=== PATIENT | female | born 1930 | race Caucasian/White ===

== ENCOUNTER 2018-03-04 15:32 | Emergency (ER) | payer OTHER ==
[~2018-03-04] VITALS: Ht 142.2 cm; Wt 38.6 kg
[2018-03-04 19:20] VITALS: BP 111/74
== END 2018-03-04 19:22 | disposition home or self-care (01) ==
LOC: EME 15:32
DX: R42 Dizziness and giddiness (principal); M54.9 Dorsalgia, unspecified; M25.562 Pain in left knee; M81.0 Age-related osteoporosis without current pathological fracture; W18.30XA Fall on same level, unspecified, initial encounter; Y92.008 Other place in unspecified non-institutional (private) residence as the place of occurrence of the external cause; Y93.01 Activity, walking, marching and hiking
CPT/HCPCS: 72170; 73564; 99281; 99284